=== PATIENT | male | born 1960 | race Hispanic/Latino ===

== ENCOUNTER 2020-06-08 13:48 | Inpatient (IN) | payer BC ==
[2020-06-08] VITALS (9 sets, daily range): BP systolic 91–126; BP diastolic 65–94
[~2020-06-08] VITALS: Ht 185.4 cm; Wt 90.7 kg
[2020-06-08] MEDS ORDERED: NITROGLYCERIN 2% OINT 1 GM PKT ONE (14:38)
[2020-06-08] MEDS ORDERED: NITROGLYCERIN 0.4 MG SUBL ONE (14:38)
[2020-06-08] MEDS ORDERED: HEPARIN SOD (PORCINE) 1000 UNIT/ML 30ML ONE (15:11)
[2020-06-08] MEDS ORDERED: VERAPAMIL HCL 2.5 MG/ML 2 ML VIAL ONE (15:11)
[2020-06-08] MEDS ORDERED: MIDAZOLAM HCL 2 MG/2 ML VIAL ONE (15:12)
[2020-06-08] MEDS ORDERED: FENTANYL CITRATE/PF 100MCG/2 ML INJ ONE (15:12)
[2020-06-08] MEDS ORDERED: NITROGLYCERIN/D5W 200 MCG/ML 250 ML ONE (15:13)
[2020-06-08] MEDS ORDERED: SODIUM CHLORIDE 0.9% 1000ML 1,000 ML ONE (15:13)
[2020-06-08] MEDS ORDERED: IOPAMIDOL 370 MG/ML 200 ML INFUS..BTL INJ ONE (15:13)
[2020-06-08] MEDS ORDERED: LIDOCAINE HCL 2% LOCAL 20 ML VIAL ONE (15:13)
[2020-06-08] MEDS ORDERED: NITROGLYCERIN 2% OINT 1 GM PKT TOP ONE (15:15)
[2020-06-08] MEDS ORDERED: HEPARIN SOD/SOD CHLORIDE 2,000 ML ONE (15:15)
[2020-06-08] MEDS ORDERED: NITROGLYCERIN 0.4 MG SUBL SL ONE (15:15)
[2020-06-08] MEDS ORDERED: ASPIRIN 325 MG TAB PO ONE (15:15)
[2020-06-08] MEDS ORDERED: CLOPIDOGREL BISULFATE 75 MG TAB ONE (16:06)
[2020-06-08] MEDS: ACETAMINOPHEN 325 MG TAB PO PRN ×3 (18:33→19:53)
[2020-06-08] MEDS ORDERED: ATORVASTATIN 40 MG TAB PO SCH (21:00)
[2020-06-09] VITALS (19 sets, daily range): BP systolic 83–127; BP diastolic 58–94
[2020-06-09 04:53] LABS: BASOPHILS % 0.3 % (0.0-1.0); EOSINOPHILS # (AUTO) 0.1 (0.0-0.4); EOSINOPHILS % 0.8 % (0.0-6.0); HEMOGLOBIN 16.1 g/dL (14.0-18.0); LYMPHOCYTES # (AUTO) 1.4 (1.0-3.2); LYMPHOCYTES % 14.8 % (18.0-39.1); MEAN CORPUSCULAR HEMOGLOBIN 32.7 pg (28-32); MEAN CORPUSCULAR HGB CONC 36.6 g/dL (31-35); MEAN CORPUSCULAR VOLUME 89.2 fL (81-99); MONOCYTES # (AUTO) 0.7 (0.2-0.8); MONOCYTES % 7.5 % (4.4-11.3); NEUTROPHILS # (AUTO) 7.2 (2.1-6.9); NEUTROPHILS % 76.1 % (38.7-80.0); PLATELET COUNT 210 x10e3/uL (140-360); RED BLOOD COUNT 4.93 x10e6/uL (4.3-5.7); RED CELL DISTRIBUTION WIDTH 13.2 % (11.7-14.4)
[2020-06-09 05:20] LABS: ALANINE AMINOTRANSFERASE 97 IU/L (0-55); ALBUMIN 3.8 g/dL (3.5-5.0); ALBUMIN/GLOBULIN RATIO 1.1 (0.8-2.0); ALKALINE PHOSPHATASE 124 IU/L (40-150); ANION GAP 14.6 mmol/L (8-16); BLOOD UREA NITROGEN 9 mg/dL (7-26); BUN/CREATININE RATIO 10 (6-25); CARBON DIOXIDE 20 mmol/L (22-29); CHLORIDE 105 mmol/L (98-107); CHOL/HDL RATIO 3.6 (3.9-4.7); CHOLESTEROL 143 MD/DL (0-199); CREATININE, SERUM 0.91 mg/dL (0.72-1.25); EST GLOMERULAR FILTRATION RATE > 60 ML/MIN (60-); GLUCOSE 105 mg/dL (74-118); HDL CHOLESTEROL 40 MG/DL (40-60); LDL CHOLESTEROL 72 MG/DL (60-130); POTASSIUM 3.6 mmol/L (3.5-5.1); SODIUM 136 mmol/L (136-145); TRIGLYCERIDES 156 MG/DL (0-149)
[2020-06-09] MEDS ORDERED: ASPIRIN 81 MG CHEW TAB PO SCH (09:00)
[2020-06-09] MEDS ORDERED: CLOPIDOGREL BISULFATE 75 MG TAB PO SCH (09:00)
[2020-06-09] MEDS ORDERED: PLAVIX75 MG PO (17:25)
[2020-06-09] MEDS ORDERED: LIPITOR20 MG PO (17:25)
== END 2020-06-09 18:38 | disposition home or self-care (01) | DRG 247 ==
LOC: FSED 14:18 → ICU 16:47
PROVIDERS: ADMIT Internal Medicine; ATTEND Internal Medicine
PROC: 027034Z Dilation of Coronary Artery, One Artery with Drug-eluting Intraluminal Device, Percutaneous Approach (ICD-10-PCS; principal; 2020-06-08)
PROC: 4A023N7 Measurement of Cardiac Sampling and Pressure, Left Heart, Percutaneous Approach (ICD-10-PCS; 2020-06-08)
PROC: B2111ZZ Fluoroscopy of Multiple Coronary Arteries using Low Osmolar Contrast (ICD-10-PCS; 2020-06-08)
PROC: B2151ZZ Fluoroscopy of Left Heart using Low Osmolar Contrast (ICD-10-PCS; 2020-06-08)
DX: I21.09 ST elevation (STEMI) myocardial infarction involving other coronary artery of anterior wall (principal); I25.110 Atherosclerotic heart disease of native coronary artery with unstable angina pectoris; I10 Essential (primary) hypertension; E78.5 Hyperlipidemia, unspecified; Z11.59 Encounter for screening for other viral diseases
CPT/HCPCS: 36415; 71045; 80053; 80061; 82553; 84484; 85025; 92928; 93005; 93306; 93458; 99152; 99153; 99284; C1725; C1874; J1644; J2001; J2250; J3010; J7030; Q9967; U0002

== ENCOUNTER 2020-11-14 10:18 | Emergency (ER) | payer BC ==
[~2020-11-14] VITALS: Ht 177.8 cm; Wt 90.7 kg
[~2020-11-14 10:18] MED LIST: LIPITOR20 MG PO; PLAVIX75 MG PO
[2020-11-14] MEDS ORDERED: ONDANSETRON HCL 4 MG ORAL DISINTEGRATING TAB PO STA (10:45)
[2020-11-14] MEDS ORDERED: DEXAMETHASONE SOD PHOS 10 MG/1 ML VIAL IM STA (10:45)
[2020-11-14] MEDS ORDERED: VENTOLIN HFA18 GM INH (11:17)
[2020-11-14] MEDS ORDERED: PREDNISONE20 MG PO (11:17)
[2020-11-14] MEDS ORDERED: AZITHROMYCIN250 MG PO (11:17)
[2020-11-14] MEDS ORDERED: ONDANSETRON ODT4 MG PO (11:17)
== END 2020-11-14 11:27 | disposition home or self-care (01) ==
LOC: FSED 10:35
DX: U07.1 COVID-19 (principal); R11.2 Nausea with vomiting, unspecified; R53.1 Weakness; I10 Essential (primary) hypertension; R53.81 Other malaise; E78.5 Hyperlipidemia, unspecified
CPT/HCPCS: 99282; J1100

== ENCOUNTER 2022-11-09 12:35 | Observation (INO) | payer BC ==
[~2022-11-09] VITALS: Ht 177.8 cm; Wt 80.3 kg
[~2022-11-09 12:35] MED LIST changes: +AZITHROMYCIN250 MG PO; +ONDANSETRON ODT4 MG PO; +PREDNISONE20 MG PO; +VENTOLIN HFA18 GM INH
[2022-11-09] MEDS ORDERED: ASPIRIN 81 MG CHEW TAB PO ONE ×2 (12:45→14:00)
[2022-11-09] MEDS ORDERED: DILTIAZEM HCL 5 MG/ML 5 ML VIAL IV ONE (13:00)
[2022-11-09 13:15] LABS: BASOPHILS % 0.4 % (0.0-1.0); EOSINOPHILS % 0.5 % (0.0-6.0); HEMATOCRIT 49.8 % (38.2-49.6); HEMOGLOBIN 17.4 g/dL (14.0-18.0); LYMPHOCYTES % 24.4 % (18.0-39.1); MEAN CORPUSCULAR HEMOGLOBIN 30.4 pg (28-32); MEAN CORPUSCULAR HGB CONC 34.9 g/dL (31-35); MEAN CORPUSCULAR VOLUME 86.9 fL (81-99); MONOCYTES # (AUTO) 0.5 (0.2-0.8); MONOCYTES % 6.3 % (4.4-11.3); NEUTROPHILS # (AUTO) 5.5 (2.1-6.9); NEUTROPHILS % 68.2 % (38.7-80.0); PLATELET COUNT 274 x10e3/uL (140-360); RED BLOOD COUNT 5.73 x10e6/uL (4.3-5.7); RED CELL DISTRIBUTION WIDTH 13.3 % (11.7-14.4)
[2022-11-09 13:27] LABS: ALBUMIN 4.3 g/dL (3.5-5.0); ALBUMIN/GLOBULIN RATIO 1.2 (0.8-2.0); ANION GAP 13.2 mmol/L (8-16); CALCIUM 9.7 mg/dL (8.4-10.2); CREATININE, SERUM 1.31 mg/dL (0.72-1.25); POTASSIUM 4.2 mmol/L (3.5-5.1)
[2022-11-09] MEDS ORDERED: ACETAMINOPHEN 325 MG TAB ONE (13:35)
[2022-11-09] MEDS ORDERED: ONDANSETRON HCL INJ 2MG/ML 2ML 2 MG/ML VIAL IV PRN (14:00)
[2022-11-09] MEDS ORDERED: SODIUM CHLORIDE 0.9% 1000ML 1,000 ML IV ONE (14:00)
[2022-11-09] MEDS ORDERED: SODIUM CHLORIDE FLUSH 10 ML SYR INJ PRN (14:00)
[2022-11-09 15:04] VITALS: BP 121/78
[2022-11-09 15:21] VITALS: BP 121/78
[2022-11-09 15:45] VITALS: BP 121/78
[2022-11-09 19:07] LABS: CREATINE KINASE MB 1.7 ng/mL (0-5.0)
[2022-11-09 20:00] VITALS: BP 104/71
[2022-11-09] MEDS ORDERED: AMIODARONE 900MG 900 MG in Premix Bag 1 BAG IV SCH (20:15)
[2022-11-09] MEDS ORDERED: AMIODARONE HCL 150 MG/100 ML BAG IV ONE (20:15)
[2022-11-09] MEDS ORDERED: ATORVASTATIN 40 MG TAB PO SCH (21:00)
[2022-11-09] MEDS ORDERED: AMIODARONE 900MG 500 ML IV ONE (21:46)
[2022-11-09 22:15] LABS: CREATINE KINASE MB 1.5 ng/mL (0-5.0)
[2022-11-10] VITALS (8 sets, daily range): BP systolic 90–133; BP diastolic 55–92
[2022-11-10 08:02] LABS: INR 0.88; PARTIAL THROMBOPLASTIN TIME 33.4 seconds (23.8-35.5); PROTHROMBIN TIME 12.4 seconds (11.9-14.5)
[2022-11-10 08:17] LABS: CREATINE KINASE MB 1.2 ng/mL (0-5.0)
[2022-11-10 08:30] LABS: CHOL/HDL RATIO 3.2 (3.9-4.7)
[2022-11-10] MEDS: ASPIRIN 81 MG ENTERIC COATED PO SCH (09:57)
[2022-11-10] MEDS: APIXABAN 5 MG TABLET PO SCH ×2 (09:57→16:19)
[2022-11-10] MEDS ORDERED: LISINOPRIL-HCT1 EAC2 PO (13:33)
[2022-11-10] MEDS ORDERED: ATORVASTATIN 40 MG TAB PO SCH (21:00)
[2022-11-10] MEDS: AMIODARONE HCL 200 MG TAB PO SCH (21:05)
[2022-11-11] VITALS: BP 105/76
[2022-11-11 04:00] VITALS: BP 117/75
[2022-11-11 06:17] LABS: BASOPHILS % 0.2 % (0.0-1.0); EOSINOPHILS # (AUTO) 0.1 (0.0-0.4); EOSINOPHILS % 0.7 % (0.0-6.0); HEMATOCRIT 46.7 % (38.2-49.6); HEMOGLOBIN 16.1 g/dL (14.0-18.0); LYMPHOCYTES # (AUTO) 1.6 (1.0-3.2); LYMPHOCYTES % 17.5 % (18.0-39.1); MEAN CORPUSCULAR HEMOGLOBIN 30.1 pg (28-32); MEAN CORPUSCULAR HGB CONC 34.5 g/dL (31-35); MEAN CORPUSCULAR VOLUME 87.3 fL (81-99); MONOCYTES # (AUTO) 0.5 (0.2-0.8); NEUTROPHILS # (AUTO) 6.8 (2.1-6.9); NEUTROPHILS % 75.2 % (38.7-80.0); PLATELET COUNT 248 x10e3/uL (140-360); RED BLOOD COUNT 5.35 x10e6/uL (4.3-5.7)
[2022-11-11 06:34] LABS: ANION GAP 12.7 mmol/L (8-16); CREATININE, SERUM 0.83 mg/dL (0.72-1.25); POTASSIUM 3.7 mmol/L (3.5-5.1)
[2022-11-11] MEDS: ASPIRIN 81 MG ENTERIC COATED PO SCH (08:27)
[2022-11-11] MEDS: AMIODARONE HCL 200 MG TAB PO SCH (08:28)
[2022-11-11] MEDS: APIXABAN 5 MG TABLET PO SCH (08:28)
[2022-11-11 08:30] VITALS: BP 117/75
[2022-11-11 08:31] VITALS: BP 122/76
[2022-11-11] MEDS ORDERED: ELIQUIS5 MG PO (09:42)
[2022-11-11] MEDS ORDERED: AMIODARONE HCL200 MG PO (09:42)
== END 2022-11-11 10:45 | disposition home or self-care (01) ==
LOC: ER 12:44 → ERHOLD 13:52 → INTOOBSV 13:52 → MED/SURG2 14:36
PROVIDERS: ADMIT Internal Medicine; ATTEND Internal Medicine
DX: I25.10 Atherosclerotic heart disease of native coronary artery without angina pectoris (principal); Z95.5 Presence of coronary angioplasty implant and graft; E78.5 Hyperlipidemia, unspecified; I48.91 Unspecified atrial fibrillation; I10 Essential (primary) hypertension; Z20.822 Contact with and (suspected) exposure to COVID-19
CPT/HCPCS: 0223U; 36415 ×3; 71045; 80048; 80053; 80061; 82550 ×2; 82553 ×2; 83880; 84443; 84484 ×2; 85025 ×2; 85610; 85730; 93005; 99284; G0378 ×3; J7030

== ENCOUNTER 2024-06-07 04:09 | Observation (INO) | payer SELFPAY ==
[~2024-06-07] VITALS: Ht 162.6 cm; Wt 86.2 kg
[~2024-06-07 04:09] MED LIST changes: +AMIODARONE HCL200 MG PO; +ELIQUIS5 MG PO; +LISINOPRIL-HCT1 EAC2 PO
[2024-06-07 04:40] LABS: BASOPHILS % 0.4 % (0.0-1.0); EOSINOPHILS % 0.5 % (0.0-6.0); HEMATOCRIT 50.3 % (38.2-49.6); HEMOGLOBIN 17.8 g/dL (14.0-18.0); LYMPHOCYTES # (AUTO) 2.3 (1.0-3.2); LYMPHOCYTES % 30.1 % (18.0-39.1); MEAN CORPUSCULAR HGB CONC 35.4 g/dL (31-35); MEAN CORPUSCULAR VOLUME 90.3 fL (81-99); MONOCYTES # (AUTO) 0.5 (0.2-0.8); MONOCYTES % 6.1 % (4.4-11.3); NEUTROPHILS # (AUTO) 4.7 (2.1-6.9); NEUTROPHILS % 62.6 % (38.7-80.0); PLATELET COUNT 234 x10e3/uL (140-360); RED BLOOD COUNT 5.57 x10e6/uL (4.3-5.7); RED CELL DISTRIBUTION WIDTH 13.1 % (11.7-14.4); WHITE BLOOD COUNT 7.57 x10e3/uL (4.8-10.8)
[2024-06-07] MEDS: ASPIRIN 81 MG CHEW TAB PO STA ×2 (04:46→06:50)
[2024-06-07 04:55] LABS: ALBUMIN 4.3 g/dL (3.5-5.0); ALBUMIN/GLOBULIN RATIO 1.4 (0.8-2.0); ANION GAP 14.9 mmol/L (8-16); BILIRUBIN,TOTAL 1.6 mg/dL (0.2-1.2); CALCIUM 9.5 mg/dL (8.4-10.2); CREATININE, SERUM 1.16 mg/dL (0.72-1.25); POTASSIUM 3.9 mmol/L (3.5-5.1); TOTAL PROTEIN 7.3 g/dL (6.5-8.1)
[2024-06-07 05:01] LABS: TROPONIN I 0.035 ng/mL (0-0.300)
[2024-06-07 06:46] LABS: TROPONIN I 0.04 ng/mL (0-0.300)
[2024-06-07] MEDS ORDERED: Morphine 2mg Syringe 2 MG/ML SYR IV PRN (07:00)
[2024-06-07] MEDS ORDERED: ONDANSETRON HCL INJ 2MG/ML 2ML 2 MG/ML VIAL IV PRN (07:00)
[2024-06-07 07:49] VITALS: PULSE 79; RESP 18; TEMP 98.9
[2024-06-07 08:05] VITALS: BP 115/90; PULSE 87; RESP 19; TEMP 97.5; O2SAT 100
[2024-06-07] MEDS ORDERED: XARELTO20 MG PO (08:37)
[2024-06-07 08:53] VITALS: BP 106/81; O2SAT 99
[2024-06-07 08:58] VITALS: BP 115/90; PULSE 87; RESP 16; TEMP 97.5; O2SAT 100
[2024-06-07] MEDS: RIVAROXABAN 20 MG TABLET PO SCH (09:54)
[2024-06-07] MEDS: HYDROCHLOROTHIAZIDE 25 MG TAB PO SCH (09:54)
[2024-06-07] MEDS: LISINOPRIL 10 MG TAB PO SCH (09:54)
[2024-06-07 12:00] VITALS: BP 108/74; PULSE 76; RESP 19; TEMP 97.7; O2SAT 98
[2024-06-07 16:00] VITALS: BP 111/74; PULSE 92; RESP 19; TEMP 98.1; O2SAT 98
== END 2024-06-07 17:23 | disposition home or self-care (01) ==
LOC: ER 04:15 → ERHOLD 06:52 → MED/SURG2 08:10
PROVIDERS: ADMIT Internal Medicine; ATTEND Internal Medicine
DX: R07.89 Other chest pain (principal); M25.512 Pain in left shoulder; I10 Essential (primary) hypertension; I25.10 Atherosclerotic heart disease of native coronary artery without angina pectoris; Z95.5 Presence of coronary angioplasty implant and graft; E78.5 Hyperlipidemia, unspecified; I48.91 Unspecified atrial fibrillation; Z79.01 Long term (current) use of anticoagulants; Z79.899 Other long term (current) drug therapy
CPT/HCPCS: 36415; 71045; 80053; 82550; 83690; 83880; 84484; 85025; 93005; 99284; G0378